=== PATIENT | male | born 1995 | race Caucasian/White ===

== ENCOUNTER 2019-10-06 18:05 | Emergency (ER) | payer SELFPAY ==
[~2019-10-06] VITALS: Ht 182.9 cm; Wt 61.2 kg
[2019-10-06 18:27] VITALS: Ht 182.9 cm; Wt 61.2 kg
[2019-10-06 19:39] VITALS: BP 130/73
== END 2019-10-06 19:39 | disposition home or self-care (01) ==
LOC: ED 18:05
DX: S20.411A Abrasion of right back wall of thorax, initial encounter (principal); F41.9 Anxiety disorder, unspecified; M79.10 Myalgia, unspecified site; W18.09XA Striking against other object with subsequent fall, initial encounter; Y93.89 Activity, other specified; Y92.89 Other specified places as the place of occurrence of the external cause; Y99.8 Other external cause status